=== PATIENT | male | born 1955 | race Caucasian/White ===

== ENCOUNTER → 2016-08-07 | Day surgery (SDC) | payer OTHER ==
[2016-07-30 09:12] VITALS: BMI 32.0
[~2016-08-07] VITALS: Ht 177.8 cm; Wt 102.3 kg
[~2016-08-07] MED LIST: ASPCH81X PO; ATOR-22 PO; CALC-393 PO; CALC0.5C2 PO; CARV3.122 PO; FENTANYL CITRATE INJ 50 MCG/1 ML 2 ML VIAL ONE; GLC/500 PO; LIDOCAINE HCL 2% 2 ML VIAL (20MG/ML) ONE; LISI-729 PO; MAGN1CAP2 PO; MULT-506 PO; NTRGSL/4 UT; PROPOFOL IV EMULSION 10 MG/ML 20 ML VIAL IV ONE; TAMS0.4C38 PO; ZNTT/150 PO
[2016-08-07 12:38] VITALS: Ht 177.8 cm; Wt 102.3 kg
--- NOTE | 2016-08-07 13:25 | Endo History and Physical ---
History & Physical Date of Service: Aug 07, 2016. Chief Complaint: CELIAC DISEASE Referring Physician: DR DAVENPORT History of Present Illness 61 yo CM who presents for EGD secondary to positive Celiac Ab. Past Surgical History Hx Cardiac Surgery: Yes (HEART CATH-3 STENTS PLACED) Hx Internal Defibrillator: No Hx Pacemaker: No Hx Abdominal Surgery: No Hx of Implantable Prosthesis: No Hx Post-Op Nausea and Vomiting: No Hx Cancer Surgery: No Hx Thoracic Surgery: No Hx Orthopedic: Yes (CTR ?HAND, TRIGGER FINGER RELEASE) Hx Urinary Tract Surgery: No Family History IBD Social History Smoking Status: Never Smoker Hx Substance Use: No Hx Alcohol Use: Yes (SOCIALLY) Allergies Coded Allergies: NO KNOWN DRUG ALLERGIES (Verified Allergy, Unknown, ., 08/07/16) Current Medications Reported Home Medications Medications Dose Route/Sig Max Daily Dose Days Date Category Magnesium (Magnesium Oxide (Mg Supplement) 400 Mg Cap 1 Cap PO BID 07/30/16 Reported Glucophage (Metformin Hcl) 500 Mg Tab 500 Mg PO QPM 07/30/16 Reported Rocaltrol (Calcitriol) 0.5 Mcg Cap 3 Cap PO BID 07/30/16 Reported Flomax (Tamsulosin Hcl) 0.4 Mg Cap 0.4 Mg PO QPM 07/30/16 Reported Calcium (Calcium Carbonate) 600 Mg Tab 2 Tab PO QAM 07/30/16 Reported Multivitamin (Multivitamins) Tab 1 Tab PO QAM 07/30/16 Reported Aspirin Chewable (Aspirin) 81 Mg Chew 81 Mg PO QAM 07/30/16 Reported Nitrostat (Nitroglycerin) 0.4 Mg Tab 0.4 Mg UT PRN 07/30/16 Reported Zestril (Lisinopril) 5 Mg Tab 5 Mg PO HS 07/30/16 Reported Coreg (Carvedilol) 3.125 Mg Tab 3.125 Mg PO BID 07/30/16 Reported Lipitor (Atorvastatin Calcium) 20 Mg Tab 20 Mg PO HS 07/30/16 Reported Zantac (Ranitidine HCl) 150 Mg Tab 150 Mg PO QAM 07/30/16 Reported Vital Signs Weight (Kilograms): 102.27 Height (Feet): 5 Height (Inches): 10 Date Time Temp Pulse Resp B/P (MAP) Pulse Ox O2 Delivery O2 Flow Rate FiO2 08/07/16 12:56 36.5 57 20 133/ (44) 96 Room Air Physical Exam General Appearance: WD/WN, no apparent distress Respiratory/Chest: Auscultation: breath sounds normal Cardiovascular: Heart Auscultation: RRR Abdomen: Bowel Sounds: normal Inspection & Palpation: soft, non-distended, no tenderness, guarding & rebound Assessment and Plan Assessment: 61 yo CM who presents for EGD secondary to positive Celiac Ab. Plan: Proceed with EGD.
--- NOTE | 2016-08-07 13:37 | Discharge Instructions ---
Endoscopy Patient Instructions Date / Procedure(s) Performed Aug 07, 2016. EGD Allergy Information Coded Allergies: NO KNOWN DRUG ALLERGIES (Verified Allergy, Unknown, ., 08/07/16) Discharge Date / Findings Aug 07, 2016. Duodenal biopsies Gastric antrum biopsies Medication Instructions Stopped Medication(s): METFORMIN OK to resume all medications today as prescribed Medications Dose Route/Sig Max Daily Dose Days Date Category Magnesium (Magnesium Oxide (Mg Supplement) 400 Mg Cap 1 Cap PO BID 07/30/16 Reported Glucophage (Metformin Hcl) 500 Mg Tab 500 Mg PO QPM 07/30/16 Reported Rocaltrol (Calcitriol) 0.5 Mcg Cap 3 Cap PO BID 07/30/16 Reported Flomax (Tamsulosin Hcl) 0.4 Mg Cap 0.4 Mg PO QPM 07/30/16 Reported Calcium (Calcium Carbonate) 600 Mg Tab 2 Tab PO QAM 07/30/16 Reported Multivitamin (Multivitamins) Tab 1 Tab PO QAM 07/30/16 Reported Aspirin Chewable (Aspirin) 81 Mg Chew 81 Mg PO QAM 07/30/16 Reported Nitrostat (Nitroglycerin) 0.4 Mg Tab 0.4 Mg UT PRN 07/30/16 Reported Zestril (Lisinopril) 5 Mg Tab 5 Mg PO HS 07/30/16 Reported Coreg (Carvedilol) 3.125 Mg Tab 3.125 Mg PO BID 07/30/16 Reported Lipitor (Atorvastatin Calcium) 20 Mg Tab 20 Mg PO HS 07/30/16 Reported Zantac (Ranitidine HCl) 150 Mg Tab 150 Mg PO QAM 07/30/16 Reported Provider Instructions Activity Restrictions - No exercising or heavy lifting for 24 hours. - Do not drink alcohol the day of the procedure. - Do not drive a car or operate machinery until the day after the procedure. - Do not make any important decisions or sign important papers in 24 hours after the procedure. Following Day: - Return to full activity which may include returning to work/school. Diet Start your diet with liquids and light foods (jello, soup, juice, toast). Then eat your usual diet if not nauseated. Treatment For Common After Affects For mild abdominal pain, bloating, or excessive gas: - Rest - Eat lightly - Lie on right side Follow-Up Information Follow-up with DR DAVENPORT as scheduled Anesthesia Information What You Should Know You have had a procedure that required some medicine to reduce anxiety and discomfort. This treatment is called moderate sedation. After receiving the treatment, you may be sleepy, but you will be able to breathe on your own. The effects of the treatment may last for several hours. Follow these instructions along with Activity/Diet recommendations noted above: * Do NOT do anything where dizziness or clumsiness would be dangerous. * Rest quietly at home today, then you can be up and about tomorrow. * Have a responsible person stay with you the rest of today. * You may have had an I.V. today. If so, you may take the dressing off later today. Recommendations Call your doctor if: * Trouble breathing * Continuous vomiting for more than 24 hours * Temperature above 101 degrees * Severe abdominal pain or bloating * Pain not relieved by pain medicine ordered * There is increased drainage or redness from any incision * A large amount of rectal bleeding greater than 2-3 tablespoons. (If you had a polyp/s removed or have hemorrhoids, a small amount of blood - from the rectum is to be expected.) * You have any unanswered questions or concerns. IN THE EVENT OF A SERIOUS EMERGENCY, GO TO THE NEAREST EMERGENCY ROOM Your discharge instructions were prepared by provider Declan Rosas. Patient Instructions Signature Page Reji Ceja Patient (or Guardian) Signature/Date: I have read and understand the instructions given to me by my caregivers. Caregiver/RN/Doctor Signature/Date: The above-named patient and/or guardian has received patient instructions on this date. + Original Patient Signature Page (only) stays with chart. Please make copy for patient.
--- NOTE | 2016-08-07 13:43 | GI REPORT ---
Procedure Date: 08/07/2016 1:14 PM Procedure: Upper GI endoscopy Indications: Positive celiac serologies Medicines: Monitored Anesthesia Care Complications: No immediate complications. Estimated Blood Loss: Estimated blood loss: none. Procedure: Pre-Anesthesia Assessment: - Prior to the procedure, a History and Physical was performed, and patient medications and allergies were reviewed. The patient's tolerance of previous anesthesia was also reviewed. The risks and benefits of the procedure and the sedation options and risks were discussed with the patient. All questions were answered, and informed consent was obtained. Prior Anticoagulants: The patient has taken aspirin, last dose was 1 day prior to procedure. ASA Grade Assessment: III - A patient with severe systemic disease. After reviewing the risks and benefits, the patient was deemed in satisfactory condition to undergo the procedure. After obtaining informed consent, the endoscope was passed under direct vision. Throughout the procedure, the patient's blood pressure, pulse, and oxygen saturations were monitored continuously. The scope was introduced through the mouth, and advanced to the second part of duodenum. The upper GI endoscopy was accomplished without difficulty. The patient tolerated the procedure well. Findings: The esophagus was normal. The entire examined stomach was normal. Biopsies were taken with a cold forceps for Helicobacter pylori testing. The 2nd part of the duodenum was normal. Biopsies for histology were taken with a cold forceps for evaluation of celiac disease. Impression: - Normal esophagus. - Normal stomach. Biopsied. - Normal 2nd part of the duodenum. Biopsied. Recommendation: - Resume previous diet. - Continue present medications. - Await pathology results. - Return to my office as previously scheduled. Declan Rosas DO 08/07/2016 1:43:01 PM This report has been signed electronically. Note Initiated On: 08/07/2016 1:14 PM I attest to the content of the Intraoperative Record and orders documented therein, exceptions below
[2016-08-07 13:58] VITALS: BP 105/64; PULSE 61; O2SAT 95
--- NOTE | 2016-08-07 14:36 | Anesthesiology Progress Note ---
Anesthesia Post Op Note Date & Time Aug 07, 2016 at 14:36 Vital Signs Pain Intensity: 0 Vital Signs Past 12 Hours Date Time Temp Pulse Resp B/P (MAP) Pulse Ox O2 Delivery O2 Flow Rate FiO2 08/07/16 13:58 61 16 105/64 (78) 95 Room Air 08/07/16 13:48 67 16 115/65 (82) 95 Room Air 08/07/16 13:38 68 16 113/69 (84) 94 Room Air 08/07/16 12:56 36.5 57 20 133/ (44) 96 Room Air Notes Mental Status: alert / awake / arousable, participated in evaluation Pt Amnestic to Procedure: Yes Nausea / Vomiting: adequately controlled Pain: adequately controlled Airway Patency, RR, SpO2: stable & adequate BP & HR: stable & adequate Hydration State: stable & adequate Anesthetic Complications: no major complications apparent
== END | disposition home or self-care (01) ==
LOC: C.GI 12:06
PROVIDERS: ATTEND Internal Medicine
DX: K90.0 Celiac disease (principal); K29.50 Unspecified chronic gastritis without bleeding; I25.10 Atherosclerotic heart disease of native coronary artery without angina pectoris; Z95.5 Presence of coronary angioplasty implant and graft; Z83.79 Family history of other diseases of the digestive system; Z79.82 Long term (current) use of aspirin; Z79.84 Long term (current) use of oral hypoglycemic drugs; Z79.899 Other long term (current) drug therapy

== ENCOUNTER → 2017-05-07 | Day surgery (SDC) | payer OTHER ==
[2017-04-22 13:54] VITALS: Ht 180.3 cm; Wt 102.3 kg
[~2017-05-07] VITALS: Ht 180.3 cm; Wt 102.3 kg
[~2017-05-07] MED LIST changes: +CHOL500021 PO; +CITA10TA4 PO; -FENTANYL CITRATE INJ 50 MCG/1 ML 2 ML VIAL ONE; -MAGN1CAP2 PO; +MAGN400T6 PO; +MIDAZOLAM HCL 1 MG/ML 2ML VIAL ONE; +ONDANSETRON INJ 2 MG/ML 2 ML VIAL ONE; +RANI150T85 PO; +SODIUM CHLORIDE 0.9% 500ML 500 ML IV ONE; -ZNTT/150 PO
[2017-05-07 13:49] VITALS: TEMP 36.7
--- NOTE | 2017-05-07 14:13 | Endo History and Physical ---
History & Physical Date of Service: May 07, 2017. Chief Complaint: screening, celiac disease Referring Physician: Dr. Paola Madrigal History of Present Illness 62 yo CM who presents for screening colonoscopy. Past Surgical History Hx Cardiac Surgery: Yes (HEART CATH-3 STENTS PLACED-7 YRS AGO) Hx Internal Defibrillator: No Hx Pacemaker: No Hx Abdominal Surgery: No Hx of Implantable Prosthesis: No Hx Post-Op Nausea and Vomiting: Yes (PONV WITH EAR TUBES) Hx Cancer Surgery: No Hx Thoracic Surgery: No Hx Orthopedic: Yes (CTR BILAT, TRIGGER FINGER RELEASE) Hx Urinary Tract Surgery: No Family History IBD Social History Smoking Status: Never Smoker Hx Substance Use: No Hx Alcohol Use: Yes (SOCIALLY) Allergies Coded Allergies: Gluten (Verified Allergy, Unknown, CELIAC DISEASE, 05/07/17) NO KNOWN DRUG ALLERGIES (Verified Allergy, Unknown, NONE, 05/07/17) Current Medications Reported Home Medications Medications Dose Route/Sig Max Daily Dose Days Date Category Citalopram Hydrobromide 10 Mg Tab 1 Tab PO DAILY 30 05/07/17 Reported Mag-Ox (Magnesium Oxide) 400 Mg Tab 400 Mg PO BID 05/07/17 Reported Vitamin D3 (Cholecalciferol) 5,000 Unit Chw Units PO DAILY 05/07/17 Reported Glucophage (Metformin Hcl) 500 Mg Tab 500 Mg PO BID 07/30/16 Reported Flomax (Tamsulosin Hcl) 0.4 Mg Cap 0.4 Mg PO QPM 07/30/16 Reported Calcium (Calcium Carbonate) 600 Mg Tab 2 Tab PO QAM 07/30/16 Reported Multivitamin (Multivitamins) Tab 1 Tab PO QAM 07/30/16 Reported Aspirin Chewable (Aspirin) 81 Mg Chew 81 Mg PO QAM 07/30/16 Reported Nitrostat (Nitroglycerin) 0.4 Mg Tab 0.4 Mg UT PRN 07/30/16 Reported Zestril (Lisinopril) 5 Mg Tab 5 Mg PO HS 07/30/16 Reported Coreg (Carvedilol) 3.125 Mg Tab 3.125 Mg PO BID 07/30/16 Reported Lipitor (Atorvastatin Calcium) 20 Mg Tab 20 Mg PO HS 07/30/16 Reported Zantac (Ranitidine HCl) 150 Mg Tab 150 Mg PO QAM 07/30/16 Reported Vital Signs Weight (Kilograms): 102.27 Height (Feet): 5 Height (Inches): 11 Date Time Temp Pulse Resp B/P (MAP) Pulse Ox O2 Delivery O2 Flow Rate FiO2 05/07/17 13:49 36.7 50 16 115/78 (90) 94 Room Air Physical Exam General Appearance: WD/WN, no apparent distress Respiratory/Chest: Auscultation: breath sounds normal Cardiovascular: Heart Auscultation: RRR Abdomen: Bowel Sounds: normal Inspection & Palpation: soft, non-distended, no tenderness, guarding & rebound Assessment and Plan Assessment: 62 yo CM who presents for screening colonoscopy. Plan: Proceed with colonoscopy.
--- NOTE | 2017-05-07 14:47 | GI REPORT ---
Procedure Date: 05/07/2017 1:45 PM Procedure: Colonoscopy Indications: Screening for colorectal malignant neoplasm Medicines: Monitored Anesthesia Care Complications: No immediate complications. Estimated Blood Loss: Estimated blood loss: none. Procedure: Pre-Anesthesia Assessment: - Prior to the procedure, a History and Physical was performed, and patient medications and allergies were reviewed. The patient's tolerance of previous anesthesia was also reviewed. The risks and benefits of the procedure and the sedation options and risks were discussed with the patient. All questions were answered, and informed consent was obtained. Prior Anticoagulants: The patient has taken aspirin, last dose was 1 day prior to procedure. ASA Grade Assessment: III - A patient with severe systemic disease. After reviewing the risks and benefits, the patient was deemed in satisfactory condition to undergo the procedure. After I obtained informed consent, the scope was passed under direct vision. Throughout the procedure, the patient's blood pressure, pulse, and oxygen saturations were monitored continuously. The scope was introduced through the anus and advanced to the terminal ileum. The colonoscopy was performed without difficulty. The patient tolerated the procedure well. The quality of the bowel preparation was good. The terminal ileum, ileocecal valve, appendiceal orifice, and rectum were photographed. Findings: The perianal and digital rectal examinations were normal. The colon (entire examined portion) appeared normal. Biopsies for histology were taken with a cold forceps from the entire colon for evaluation of microscopic colitis. Non-bleeding internal hemorrhoids were found during retroflexion. The hemorrhoids were small. Impression: - The entire examined colon is normal. Biopsied. - Non-bleeding internal hemorrhoids. Recommendation: - Resume previous diet. - Continue present medications. - Repeat colonoscopy for surveillance based on pathology results. - Return to primary care physician as previously scheduled. Declan Rosas DO 05/07/2017 2:46:41 PM This report has been signed electronically. Note Initiated On: 05/07/2017 1:45 PM I attest to the content of the Intraoperative Record and orders documented therein, exceptions below
--- NOTE | 2017-05-07 15:05 | Anesthesiology Progress Note ---
Anesthesia Post Op Note Date & Time May 07, 2017 at 15:04 Vital Signs Pain Intensity: 0 Vital Signs Past 12 Hours Date Time Temp Pulse Resp B/P (MAP) Pulse Ox O2 Delivery O2 Flow Rate FiO2 05/07/17 14:48 61 16 104/64 (77) 95 Room Air 05/07/17 13:49 36.7 50 16 115/78 (90) 94 Room Air Notes Mental Status: alert / awake / arousable, participated in evaluation Pt Amnestic to Procedure: Yes Nausea / Vomiting: adequately controlled Pain: adequately controlled Airway Patency, RR, SpO2: stable & adequate BP & HR: stable & adequate Hydration State: stable & adequate Anesthetic Complications: no major complications apparent
--- NOTE | 2017-05-07 15:11 | Discharge Instructions ---
Endoscopy Patient Instructions Date / Procedure(s) Performed May 07, 2017. Colonoscopy Allergy Information Coded Allergies: Gluten (Verified Allergy, Unknown, CELIAC DISEASE, 05/07/17) NO KNOWN DRUG ALLERGIES (Verified Allergy, Unknown, NONE, 05/07/17) Discharge Date / Findings May 07, 2017. Internal hemorrhoids Random colon biopsies Medication Instructions Stopped Medication(s): Metformin and mvi was told to be stopped but patient stopped everything. OK to resume all medications today as prescribed Reported Home Medications Medications Dose Route/Sig Max Daily Dose Days Date Category Citalopram Hydrobromide 10 Mg Tab 1 Tab PO DAILY 30 05/07/17 Reported Mag-Ox (Magnesium Oxide) 400 Mg Tab 400 Mg PO BID 05/07/17 Reported Vitamin D3 (Cholecalciferol) 5,000 Unit Chw Units PO DAILY 05/07/17 Reported Glucophage (Metformin Hcl) 500 Mg Tab 500 Mg PO BID 07/30/16 Reported Flomax (Tamsulosin Hcl) 0.4 Mg Cap 0.4 Mg PO QPM 07/30/16 Reported Calcium (Calcium Carbonate) 600 Mg Tab 2 Tab PO QAM 07/30/16 Reported Multivitamin (Multivitamins) Tab 1 Tab PO QAM 07/30/16 Reported Aspirin Chewable (Aspirin) 81 Mg Chew 81 Mg PO QAM 07/30/16 Reported Nitrostat (Nitroglycerin) 0.4 Mg Tab 0.4 Mg UT PRN 07/30/16 Reported Zestril (Lisinopril) 5 Mg Tab 5 Mg PO HS 07/30/16 Reported Coreg (Carvedilol) 3.125 Mg Tab 3.125 Mg PO BID 07/30/16 Reported Lipitor (Atorvastatin Calcium) 20 Mg Tab 20 Mg PO HS 07/30/16 Reported Zantac (Ranitidine HCl) 150 Mg Tab 150 Mg PO QAM 07/30/16 Reported Provider Instructions Activity Restrictions - No exercising or heavy lifting for 24 hours. - Do not drink alcohol the day of the procedure. - Do not drive a car or operate machinery until the day after the procedure. - Do not make any important decisions or sign important papers in 24 hours after the procedure. Following Day: - Return to full activity which may include returning to work/school. Diet Start your diet with liquids and light foods (jello, soup, juice, toast). Then eat your usual diet if not nauseated. Treatment For Common After Affects For mild abdominal pain, bloating, or excessive gas: - Rest - Eat lightly - Lie on right side Follow-Up Information Follow-up with Dr. Paola Madrigal as scheduled Anesthesia Information What You Should Know You have had a procedure that required some medicine to reduce anxiety and discomfort. This treatment is called moderate sedation. After receiving the treatment, you may be sleepy, but you will be able to breathe on your own. The effects of the treatment may last for several hours. Follow these instructions along with Activity/Diet recommendations noted above: * Do NOT do anything where dizziness or clumsiness would be dangerous. * Rest quietly at home today, then you can be up and about tomorrow. * Have a responsible person stay with you the rest of today. * You may have had an I.V. today. If so, you may take the dressing off later today. Recommendations Call your doctor if: * Trouble breathing * Continuous vomiting for more than 24 hours * Temperature above 101 degrees * Severe abdominal pain or bloating * Pain not relieved by pain medicine ordered * There is increased drainage or redness from any incision * A large amount of rectal bleeding greater than 2-3 tablespoons. (If you had a polyp/s removed or have hemorrhoids, a small amount of blood - from the rectum is to be expected.) * You have any unanswered questions or concerns. IN THE EVENT OF A SERIOUS EMERGENCY, GO TO THE NEAREST EMERGENCY ROOM Your discharge instructions were prepared by provider Declan Rosas. Patient Instructions Signature Page Reji Ceja Patient (or Guardian) Signature/Date: I have read and understand the instructions given to me by my caregivers. Caregiver/RN/Doctor Signature/Date: The above-named patient and/or guardian has received patient instructions on this date. + Original Patient Signature Page (only) stays with chart. Please make copy for patient.
[2017-05-07 15:18] VITALS: BP 109/67; PULSE 51; O2SAT 94
== END | disposition home or self-care (01) ==
LOC: C.GI 13:15
PROVIDERS: ATTEND Internal Medicine
DX: Z12.11 Encounter for screening for malignant neoplasm of colon (principal); K90.0 Celiac disease; K64.8 Other hemorrhoids; I10 Essential (primary) hypertension; I25.10 Atherosclerotic heart disease of native coronary artery without angina pectoris; E11.9 Type 2 diabetes mellitus without complications; Z98.61 Coronary angioplasty status; Z79.82 Long term (current) use of aspirin